=== PATIENT | male | born 1955 | race Caucasian/White ===

== ENCOUNTER → 2016-07-10 | Outpatient (CLI) | payer OTHER | LOC: KOH-I 10:49 | DX: R20.2 Paresthesia of skin (principal) | CPT/HCPCS: 70450 ==

== ENCOUNTER → 2016-07-24 | Outpatient (CLI) | payer OTHER | LOC: MRI 15:18 → EMI 15:45 | DX: G45.9 Transient cerebral ischemic attack, unspecified (principal); I63.9 Cerebral infarction, unspecified | CPT/HCPCS: 36415; 70544; 70551; 82565; 84520; A9577 ==

== ENCOUNTER 2020-05-15 20:09 | Emergency (ER) | payer OTHER ==
[2020-05-15 20:30] LABS: HEMOGLOBIN 14.3 gm/dl (14.0-17.5); RED BLOOD COUNT 4.45 M/UL (4.20-5.50); WHITE BLOOD COUNT 6.2 K/UL (4.5-11.0)
== END 2020-05-15 21:37 | disposition short-term general hospital (02) ==
LOC: ER1 20:09
PROVIDERS: Emergency Medicine
DX: I63.9 Cerebral infarction, unspecified (principal); R29.707 NIHSS score 7; E78.5 Hyperlipidemia, unspecified
CPT/HCPCS: 70450; 71045; 80053; 82550; 82553; 82962; 83735; 83874; 83880; 84100; 84439; 84443; 84484; 85025; 85610; 85730; 87635; 93005; 99285; J2997